=== PATIENT | male | born 1955 | race Caucasian/White ===

== ENCOUNTER 2017-05-14 10:32 | Inpatient (IN) | payer OTHER ==
[~2017-05-14] VITALS: Ht 182.9 cm; Wt 69.4 kg
[2017-05-14] MEDS ORDERED: ASPIRIN 325 MG TAB PO STA (11:56)
[2017-05-14 12:12] LABS: BASOPHILS % 0.4 % (0.0-2.0); EOSINOPHILS # 0.2 10^3/ul (0.0-0.5); EOSINOPHILS % 1.9 % (0.0-7.0); HEMATOCRIT 44.2 % (42.0-52.0); HEMOGLOBIN 14.7 g/dl (14.0-18.0); LYMPHOCYTES # 2.3 10^3/ul (0.8-2.9); LYMPHOCYTES % 22.8 % (15.0-51.0); MEAN CORPUSCULAR HEMOGLOBIN 29.9 pg (29.0-33.0); MEAN CORPUSCULAR HGB CONC 33.3 g/dl (32.0-37.0); MEAN CORPUSCULAR VOLUME 89.8 fl (82.0-101.0); MEAN PLATELET VOLUME 10.5 fl (7.4-10.4); MONOCYTE # 0.6 10^3/ul (0.3-0.9); MONOCYTES % 6.1 % (0.0-11.0); NEUTROPHILS % 68.4 % (39.0-77.0); PLATELET COUNT 258 10^3/UL (140-415); RED BLOOD COUNT 4.92 10^6/ul (4.70-6.10); RED CELL DISTRIBUTION WIDTH 12.8 % (11.5-14.5); WHITE BLOOD COUNT 10.2 10^3/ul (4.8-10.8)
[2017-05-14 12:38] LABS: CREATININE 0.86 mg/dl (0.61-1.24); POTASSIUM 4.5 mmol/L (3.5-5.1)
[2017-05-14] MEDS ORDERED: ASPI81TA3 PO (12:41)
[2017-05-14] MEDS ORDERED: OMEP20CA16 PO (12:41)
[2017-05-14] MEDS ORDERED: METO-448 PO (12:41)
[2017-05-14] MEDS ORDERED: ATOR40TA68 PO (12:42)
[2017-05-14] MEDS ORDERED: CLOP75TA27 PO (12:42)
[2017-05-14] MEDS ORDERED: MONT10TA24 PO (12:42)
[2017-05-14] MEDS ORDERED: NITR0.4T32 SL (12:42)
[2017-05-14] MEDS ORDERED: RANO500T2 PO (12:45)
[2017-05-14 12:58] LABS: TROPONIN-I 0.166 ng/ml (0.00-0.12)
--- NOTE | 2017-05-14 13:39 | RADRPT ---
PROCEDURE: XR Chest. CLINICAL INDICATION: Chest pain . TECHNIQUE: Single frontal chest x-ray. COMPARISON: None. FINDINGS: There is diffuse bilateral interstitial prominence. There are no alveolar infiltrates, edema, or eff usions. .. The cardiomediastinal silhouette is unremarkable. The osseous structures are intact. IMPRESSION: Diffuse bilateral interstitial prominence suggesting interstitial edema or infiltrates.. RPTAT: KK .Alejandro Colindres MD, MD Date Time Electronically viewed and signed by .Alejandro Colindres MD, on 05/14/2017 13:38 .L/
--- NOTE | 2017-05-14 14:20 | ERA ---
ER Documentation Chief Complaint Date/Time DATE: 05/14/17 TIME: 14:16 Chief Complaint CHEST PAIN, ON AND OFF X1 WEEK, HX OF HEART STENTS HPI 8-year-old male presents for worsening chest pain that began a week ago and has been intermittent. Today's had the pain all of day. Is left-sided nonradiating described as a tightness and pressure-like sensation per he was sent in to [facility] for a very concerning stress test was abnormal. Patient has a history of coronary disease multiple stents. He has mild shortness of breath as well. ROS All systems reviewed and are negative except as per history of present illness. Medications Home Meds Reported Medications Ranolazine* (Ranexa*) 500 Mg Tab.sr.12h, 500 MG PO Q12, TAB 05/14/17 Atorvastatin* (Atorvastatin*) 40 Mg Tablet, 40 MG PO QHS, #30 TAB 05/14/17 Nitroglycerin* (Nitroglycerin* SL) 0.4 Mg Tab.subl, 0.4 MG SL Q5MIN Y for CHEST PAIN, BOTTLE 05/14/17 Clopidogrel Bisulfate (Clopidogrel) 75 Mg Tablet, 75 MG PO DAILY, #30 TAB 05/14/17 Montelukast Sodium* (Montelukast Sodium*) 10 Mg Tablet, 10 MG PO QHS, #30 TAB 05/14/17 Aspirin* (Aspirin* Chew) 81 Mg Tab.chew, 81 MG PO DAILY, TAB.CHEW 05/14/17 Omeprazole* (Omeprazole*) 20 Mg Capsule.dr, 20 MG PO DAILY, #30 CAP 05/14/17 Metoprolol Tartrate* (Lopressor*) 25 Mg Tab, 25 MG PO BID, #60 TAB 05/14/17 Allergies Allergies: Coded Allergies: No Known Drug Allergies (Verified Allergy, Unknown, 05/14/17) PMhx/Soc Hx Cardiac Disorders: Yes (STENT PLACED X2 . HIGH CHOLESTEROL. ) Hx Alcohol Use: No Hx Substance Use: No Hx Tobacco Use: Yes Smoking Status: Current every day smoker Physical Exam Vitals Vital Signs Date Time Temp Pulse Resp B/P Pulse Ox O2 Delivery O2 Flow Rate FiO2 05/14/17 12:30 Nasal Cannula 2 05/14/17 12:30 98.5 55 20 98 Room Air 05/14/17 10:38 98.6 61 17 107/67 97 Physical Exam Const: [] Moderate distress Head: Atraumatic Eyes: Normal Conjunctiva ENT: Normal External Ears, Nose and Mouth. Neck: Full range of motion..~ No meningismus. Resp: Clear to auscultation bilaterally Cardio: Regular rate and rhythm, no murmurs Abd: Soft, non tender, non distended. Normal bowel sounds Skin: No petechiae or rashes Back: No midline or flank tenderness Ext: No cyanosis, or edema Neur: Awake and alert and oriented 3, no focal deficits Psych: Normal Mood and Affect Result Diagram: 05/14/17 1150 05/14/17 1150 Results 24 hrs Laboratory Tests Test 05/14/17 11:50 White Blood Count 10.210^3/ul Red Blood Count 4.9210^6/ul Hemoglobin 14.7g/dl Hematocrit 44.2% Mean Corpuscular Volume 89.8fl Mean Corpuscular Hemoglobin 29.9pg Mean Corpuscular Hemoglobin Concent 33.3g/dl Red Cell Distribution Width 12.8% Platelet Count 81142^3/UL Mean Platelet Volume 10.5fl Neutrophils % 68.4% Lymphocytes % 22.8% Monocytes % 6.1% Eosinophils % 1.9% Basophils % 0.4% Nucleated Red Blood Cells % 0.0/100WBC Neutrophils # 7.010^3/ul Lymphocytes # 2.310^3/ul Monocytes # 0.610^3/ul Eosinophils # 0.210^3/ul Basophils # 0.010^3/ul Nucleated Red Blood Cells # 0.010^3/ul Sodium Level 139mmol/L Potassium Level 4.5mmol/L Chloride Level 107mmol/L Carbon Dioxide Level 23mmol/L Anion Gap 14 Blood Urea Nitrogen 16mg/dl Creatinine 0.86mg/dl Glucose Level 101mg/dl Calcium Level 9.0mg/dl Troponin I 0.166ng/ml Current Medications Medications (Trade) Dose Ordered Sig/Margaret Route PRN Reason Start Time Stop Time Status Last Admin Dose Admin Aspirin (Aspirin) 325 mg ONCE STAT PO 05/14/17 11:56 05/14/17 11:58 DC 05/14/17 11:56 Procedures/MDM Chest pain with abnormal stress test since troponin elevation. Spoke with Dr. Khalil who intends to catheterize the patient. Will be admitted for trending of troponins as well as cardiac catheterization by the patient's pharmacy resident. Spoke with Dr. Trinidad of [employer] who Agrees with Capitated Patient Not Going to [employer]. Patient was given 325 mg aspirin. His blood pressure is borderline low and I do not want to give him nitroglycerin. He is being admitted to panel hospitalist. EKG interpretation: Sinus bradycardia rate of 59, left axis deviation, no ST or T-wave changes concerning for acute ischemia, normal intervals. monitoring and evaluation advisor interpretation: Normal sinus rhythm without arrhythmia Chest x-ray interpretation: I see no acute process, I see no pneumothorax, no edema, no widened mediastinum, no fractures. Departure Diagnosis: Primary Impression: Chest pain Additional Impression: Elevated troponin Condition: Serious SHELLIEERJILOULOU PINO May 14, 2017 14:20
[2017-05-14 15:30] VITALS: TEMP 98.5
[2017-05-14] MEDS ORDERED: HEPARIN 1000 UNITS/ML 10 ML INJ IV PRN (16:00)
[2017-05-14] MEDS ORDERED: ACETAMINOPHEN 325 MG TAB PO PRN ×2 (16:00)
[2017-05-14] MEDS ORDERED: HEPARIN 1000 UNITS/ML 10 ML INJ IV ONE (16:00)
[2017-05-14] MEDS ORDERED: HEPARIN 25000 UNITS/250 ML 250 ML IV SCH (16:00)
[2017-05-14] MEDS ORDERED: ONDANSETRON 4 MG INJ IV PRN ×2 (16:00)
[2017-05-14] MEDS ORDERED: NACL 0.9% 3 ML SYG IV SCH (16:00)
--- NOTE | 2017-05-14 16:26 | HP ---
Date/Time of Note Date/Time of Note DATE: 05/14/17 TIME: 16:21 Assessment/Plan VTE Prophylaxis VTE Prophylaxis Intervention: LMWH Lines/Catheters [facility]ine [facility] Assessment/Plan Chief Complaint/Hosp Course 1. Non-ST elevation myocardial infarction. The patient has a positive stress test. The patient will be started on therapeutic anticoagulation. The patient will be continued on dual antiplatelet therapy too since the patient has prior history of coronary artery stenting. Senior Marketing Data Analyst has already been informed of the patient's admission. 2. CAD. Patient has prior history of CAD with coronary artery stenting. The patient will be continued on dual antiplatelet therapy. 3. Dyslipidemia. The patient will be continued on statins. 4. Nicotine use. Cessation will be advised. The patient will be provided with a nicotine patch. Plan: The patient will be admitted to inpatient telemetry floor. The patient will be started on a low-cholesterol diet. The patient will be started on therapeutic Lovenox. The patient will remain a full code. Activities will be as tolerated. The rest of the patient's management will be based on the clinical course, inputs from consultants, and the results of diagnostic studies. Based on the patient's clinical presentation, he most probably requires at least 2 midnights' stay for further management and evaluation of his clinical presentation. The case and management of this patient was fully discussed with Dr. Jakc. Problems: HPI/ROS Admit Date/Time Admit Date/Time Hx of Present Illness Reason for admission: Chest pain, positive outpatient cardiac stress test. Consultants 1. Avel Khalil MD, Cardiology. This is a 62-year-old [place] male with past medical history essential hypertension, dyslipidemia, and CAD status post coronary artery stenting who had an outpatient positive stress test. The patient was recently having chest pain and dyspnea. The patient verbalized the chest pain as substernal with radiation to the right shoulder. The patient explained exertional chest pain and dyspnea. The patient denied any cough. The patient denied any nausea or vomiting. The patient has been following up with Dr. Khalil as outpatient. In the emergency room, the patient was noticed to have elevated troponins (0.166 ). ROS Constitutional: no complaints Eyes: no complaints ENT: no complaints Respiratory: shortness of breath Cardiovascular: chest pain Gastrointestinal: no complaints Genitourinary: no complaints Musculoskeletal: no complaints Skin: no complaints Neurologic: no complaints Endocrine: no complaints Lymphatic: no complaints Psychological: no complaints Immunologic: no complaints PMH/Family/Social Past Medical History Medical History: coronary artery disease, high cholesterol, hypertension Past Surgical History Past Surgical Hx: angioplasty Social History Alcohol Use: occasionally Smoking Status: Current every day smoker Drug Use: none Exam/Review of Systems Vital Signs Vitals Vital Signs Date Time Temp Pulse Resp B/P Pulse Ox O2 Delivery O2 Flow Rate FiO2 05/14/17 15:30 98.5 60 20 102/69 98 Room Air 05/14/17 12:30 2 Exam Exam General: Adequately build 62 year-old male lying in bed in no apparent distress. HEENT: Normocephalic, atraumatic. Eyes: Anicteric sclerae, conjunctivae clear. ENT: Nasal septum midline, oral mucosa moist. Neck supple, JVD noticed. Respiratory: Bilaterally clear breath sounds. No use of accessory muscles of respiration. No adventitious breath sounds. Cardiovascular: S1, S2 heard. No murmurs or gallops. Abdomen: Soft, nontender, and nondistended. Bowel sounds positive in all 4 quadrants. Genitourinary: Deferred. Extremities: No cyanosis, no clubbing, no edema. Peripheral pulses palpable. Neurologic: Cranial nerves II through XII grossly intact. The patient is awake, alert, and oriented. Skin: Normal skin turgor. No skin rashes. Labs Result Diagram: 05/14/17 1150 05/14/17 1150 Medications Medications Current Medications Ondansetron HCl (Zofran Inj) 4 mg Q6H PRN IV NAUSEA AND/OR VOMITING; Start 05/14/17 at 16:00 Acetaminophen (Tylenol Tab) 650 mg Q6H PRN PO PAIN LEVEL 1-3 OR FEVER; Start 05/14/17 at 16:00 Acetaminophen/ Hydrocodone Bitart ([place] (5/325)) 1 tab Q6H PRN PO PAIN LEVEL 4 -6; Start 05/14/17 at 16:00 Aspirin (Aspirin) 81 mg DAILY PO ; Start 05/15/17 at 09:00; Status UNV Atorvastatin Calcium (Lipitor) 40 mg QHS PO ; Start 05/14/17 at 21:00; Status UNV Clopidogrel Bisulfate (plaVIX) 75 mg DAILY PO ; Start 05/15/17 at 09:00; Status UNV Metoprolol Tartrate (Lopressor) 25 mg BID PO ; Start 05/14/17 at 21:00; Status UNV Montelukast Sodium (Singulair) 10 mg QHS PO ; Start 05/14/17 at 21:00; Status UNV Ranolazine (Ranexa) 500 mg Q12 PO ; Start 05/14/17 at 21:00; Status UNV Miscellaneous Information (* Miscellaneous Pharmacy Order) DC previous hepa... ONCE ONCE XX ; Start 05/14/17 at 16:00; Stop 05/14/17 at 16:01; Status UNV Procedures Procedures CXR IMPRESSION: Diffuse bilateral interstitial prominence suggesting interstitial edema or infiltrates. 12-Lead EKG Sinus bradycardia. DREA NEWELL NP May 14, 2017 16:26
[2017-05-14 19:37] VITALS: BP 107/61; RESP 18
[2017-05-14 20:10] VITALS: BP 118/74; PULSE 59; RESP 18; Ht 182.9 cm; Wt 69.4 kg
[2017-05-14] MEDS: MONTELUKAST 10 MG TAB PO SCH (20:18)
[2017-05-14] MEDS: RANOLAZINE (SR) 500 MG TAB PO SCH (20:18)
[2017-05-14] MEDS: ATORVASTATIN 40 MG TAB PO SCH (20:18)
[2017-05-14] MEDS: ENOXAPARIN 100 MG/ML SYG SC SCH (20:21)
[2017-05-14] MEDS: METOPROLOL 25 MG TAB PO SCH (20:22)
[2017-05-14 20:33] VITALS: PULSE 59
[2017-05-14 20:58] LABS: CK-MB 1.03 ng/ml (0.0-2.4); TROPONIN-I 0.195 ng/ml (0.00-0.12)
[2017-05-14] MEDS: ISOSORBIDE DINITRATE 10 MG TAB PO SCH (21:00)
[2017-05-14] MEDS ORDERED: NITROGLYCERIN (SL) 0.4 MG TAB SL PRN (21:00)
[2017-05-14 21:40] VITALS: BP 116/72; PULSE 67
[2017-05-14] MEDS: NICOTINE (14 MG/24 HR) PATCH TRANSDERM SCH (22:48)
[2017-05-15] VITALS (13 sets, daily range): BP systolic 112–128; BP diastolic 59–73; PULSE 60–70; RESP 16–20
[2017-05-15 01:51] LABS: CK-MB 0.77 ng/ml (0.0-2.4); TROPONIN-I 0.207 ng/ml (0.00-0.12)
[2017-05-15 07:41] LABS: BASOPHILS % 0.4 % (0.0-2.0); EOSINOPHILS # 0.3 10^3/ul (0.0-0.5); EOSINOPHILS % 3.3 % (0.0-7.0); HEMATOCRIT 43.9 % (42.0-52.0); HEMOGLOBIN 14.2 g/dl (14.0-18.0); LYMPHOCYTES # 2.1 10^3/ul (0.8-2.9); LYMPHOCYTES % 25.6 % (15.0-51.0); MEAN CORPUSCULAR HEMOGLOBIN 29.7 pg (29.0-33.0); MEAN CORPUSCULAR HGB CONC 32.3 g/dl (32.0-37.0); MEAN CORPUSCULAR VOLUME 91.8 fl (82.0-101.0); MEAN PLATELET VOLUME 10.5 fl (7.4-10.4); MONOCYTE # 0.7 10^3/ul (0.3-0.9); MONOCYTES % 8.1 % (0.0-11.0); NEUTROPHIL # 5.1 10^3/ul (1.6-7.5); NEUTROPHILS % 62.2 % (39.0-77.0); PLATELET COUNT 239 10^3/UL (140-415); RED BLOOD COUNT 4.78 10^6/ul (4.70-6.10); WHITE BLOOD COUNT 8.2 10^3/ul (4.8-10.8)
[2017-05-15 08:10] LABS: CHOL/HDL RATIO 8.4 RATIO; MAGNESIUM 1.9 mg/dl (1.7-2.5); PHOSPHORUS 4.2 mg/dl (2.5-4.9)
[2017-05-15 08:11] LABS: CALCIUM 8.7 mg/dl (8.4-10.2); CREATININE 0.86 mg/dl (0.61-1.24)
[2017-05-15 08:22] LABS: INR 0.99; PROTIME 13.1 Sec (12.2-14.2)
[2017-05-15 08:23] LABS: PARTIAL THROMBOPLASTIN TIME 31.2 Sec (25.0-35.0)
[2017-05-15 08:24] LABS: TROPONIN-I 0.201 ng/ml (0.00-0.12)
[2017-05-15] MEDS: ISOSORBIDE DINITRATE 10 MG TAB PO SCH ×3 (09:00→21:00)
[2017-05-15] MEDS: CLOPIDOGREL 75 MG TAB PO SCH (09:53)
[2017-05-15] MEDS: ASPIRIN 81 MG TAB PO SCH (09:54)
[2017-05-15] MEDS: RANOLAZINE (SR) 500 MG TAB PO SCH ×2 (09:54→20:21)
[2017-05-15] MEDS: METOPROLOL 25 MG TAB PO SCH ×2 (09:54→20:22)
[2017-05-15] MEDS: NICOTINE (14 MG/24 HR) PATCH TRANSDERM SCH (09:55)
[2017-05-15] MEDS: ENOXAPARIN 100 MG/ML SYG SC SCH ×2 (09:57→20:24)
--- NOTE | 2017-05-15 10:24 | PN ---
Date/Time of Note Date/Time of Note DATE: 05/15/17 TIME: 10:20 Assessment/Plan VTE Prophylaxis VTE Prophylaxis Intervention: LMWH Lines/Catheters [facility] Urinary Cath still in place: No Assessment/Plan Chief Complaint/Hosp Course 1. Non-ST elevation myocardial infarction. The patient has a positive stress test. Continue therapeutic anticoagulation. Cardiology following the patient. 2. CAD. Patient has prior history of CAD with coronary artery stenting. The patient will be continued on dual antiplatelet therapy. 3. Dyslipidemia. The patient will be continued on statins. 4. Chest x-ray showing diffuse bilateral interstitial prominence suggesting interstitial edema or infiltrates. Patient has no evidence of any infectious etiology. Patient symptomatically stable. Will order low dose diuretics. 5. Nicotine use. Cessation will be advised. The patient will be provided with a nicotine patch. 6. Fluids, electrolytes, and nutrition. Low-cholesterol diet. 7. Plan. Continue therapeutic anticoagulation. Await further recommendations from Cardiology. Case discussed with Dr. Jack. Problems: Subjective 24 Hr Interval Summary Free Text/Dictation Denies any chest pain. Wants to go out to smoke. Exam/Review of Systems Vital Signs Vitals Vital Signs Date Time Temp Pulse Resp B/P Pulse Ox O2 Delivery O2 Flow Rate FiO2 05/15/17 08:00 61 05/15/17 07:32 97.7 20 124/73 96 05/14/17 20:10 Room Air 05/14/17 12:30 2 Intake and Output 05/14/17 05/14/17 05/15/17 15:00 23:00 07:00 Intake Total 500 ml Balance 500 ml Exam General: Adequately build 62 year-old male lying in bed in no apparent distress. HEENT: Normocephalic, atraumatic. Eyes: Anicteric sclerae, conjunctivae clear. ENT: Nasal septum midline, oral mucosa moist. Neck supple, JVD noticed. Respiratory: Bilaterally clear breath sounds. No use of accessory muscles of respiration. No adventitious breath sounds. Cardiovascular: S1, S2 heard. No murmurs or gallops. Abdomen: Soft, nontender, and nondistended. Bowel sounds positive in all 4 quadrants. Genitourinary: Deferred. Extremities: No cyanosis, no clubbing, no edema. Peripheral pulses palpable. Neurologic: Cranial nerves II through XII grossly intact. The patient is awake, alert, and oriented. Skin: Normal skin turgor. No skin rashes. Results Result Diagram: 05/15/17 0721 05/15/17 0721 Results 24 hrs Laboratory Tests Test 05/14/17 11:50 05/14/17 14:50 05/14/17 19:55 05/15/17 00:16 White Blood Count 10.2 Red Blood Count 4.92 Hemoglobin 14.7 Hematocrit 44.2 Mean Corpuscular Volume 89.8 Mean Corpuscular Hemoglobin 29.9 Mean Corpuscular Hemoglobin Concent 33.3 Red Cell Distribution Width 12.8 Platelet Count 258 Mean Platelet Volume 10.5 H Neutrophils % 68.4 Lymphocytes % 22.8 Monocytes % 6.1 Eosinophils % 1.9 Basophils % 0.4 Nucleated Red Blood Cells % 0.0 Neutrophils # 7.0 Lymphocytes # 2.3 Monocytes # 0.6 Eosinophils # 0.2 Basophils # 0.0 Nucleated Red Blood Cells # 0.0 Sodium Level 139 Potassium Level 4.5 Chloride Level 107 Carbon Dioxide Level 23 Anion Gap 14 Blood Urea Nitrogen 16 Creatinine 0.86 Glucose Level 101 Calcium Level 9.0 Troponin I 0.166 *H 0.195 *H 0.207 *H Hemoglobin A1c 5.8 Thyroid Stimulating Hormone (TSH) 1.380 Free Thyroxine 1.19 Creatine Kinase 49 43 Creatine Kinase Index 2.1 1.8 Creatinine Kinase MB (Mass) 1.03 0.77 Test 05/15/17 07:21 White Blood Count 8.2 Red Blood Count 4.78 Hemoglobin 14.2 Hematocrit 43.9 Mean Corpuscular Volume 91.8 Mean Corpuscular Hemoglobin 29.7 Mean Corpuscular Hemoglobin Concent 32.3 Red Cell Distribution Width 13.0 Platelet Count 239 Mean Platelet Volume 10.5 H Neutrophils % 62.2 Lymphocytes % 25.6 Monocytes % 8.1 Eosinophils % 3.3 Basophils % 0.4 Nucleated Red Blood Cells % 0.0 Neutrophils # 5.1 Lymphocytes # 2.1 Monocytes # 0.7 Eosinophils # 0.3 Basophils # 0.0 Nucleated Red Blood Cells # 0.0 Prothrombin Time 13.1 Prothrombin Time Ratio 1.0 INR International Normalized Ratio 0.99 Activated Partial Thromboplast Time 31.2 Sodium Level 140 Potassium Level 5.0 Chloride Level 108 Carbon Dioxide Level 25 Anion Gap 12 Blood Urea Nitrogen 20 Creatinine 0.86 Glucose Level 119 Calcium Level 8.7 Phosphorus Level 4.2 Magnesium Level 1.9 Troponin I 0.201 *H Triglycerides Level 186 H Cholesterol Level 219 H LDL Cholesterol, Calculated 156 HDL Cholesterol 26 L Cholesterol/HDL Ratio 8.4 Medications Medications Current Medications Ondansetron HCl (Zofran Inj) 4 mg Q6H PRN IV NAUSEA AND/OR VOMITING; Start 05/14/17 at 16:00 Acetaminophen (Tylenol Tab) 650 mg Q6H PRN PO PAIN LEVEL 1-3 OR FEVER; Start 05/14/17 at 16:00 Acetaminophen/ Hydrocodone Bitart ([place] (5/325)) 1 tab Q6H PRN PO PAIN LEVEL 4 -6; Start 05/14/17 at 16:00 Aspirin (Aspirin) 81 mg DAILY PO Last administered on 05/15/17 09:54; Admin Dose 81 MG; Start 05/15/17 at 09:00 Atorvastatin Calcium (Lipitor) 40 mg QHS PO Last administered on 05/14/17 20: 18; Admin Dose 40 MG; Start 05/14/17 at 21:00 Clopidogrel Bisulfate (plaVIX) 75 mg DAILY PO Last administered on 05/15/17 09 :53; Admin Dose 75 MG; Start 05/15/17 at 09:00 Metoprolol Tartrate (Lopressor) 25 mg BID PO Last administered on 05/15/17 09: 54; Admin Dose 25 MG; Start 05/14/17 at 21:00 Montelukast Sodium (Singulair) 10 mg QHS PO Last administered on 05/14/17 20: 18; Admin Dose 10 MG; Start 05/14/17 at 21:00 Ranolazine (Ranexa) 500 mg Q12 PO Last administered on 05/15/17 09:54; Admin Dose 500 MG; Start 05/14/17 at 21:00 Enoxaparin Sodium (Lovenox) 70 mg Q12 SC Last administered on 05/15/17 09:57; Admin Dose 70 MG; Start 05/14/17 at 21:00 Nicotine (Nicoderm 14 Mg/ 24hr) 1 patch DAILY TRANSDERM Last administered on 09:55; Admin Dose 1 PATCH; Start 05/14/17 at 16:30 Isosorbide Dinitrate (Isordil) 10 mg TID PO ; Start 05/14/17 at 21:00 Nitroglycerin (Nitroglycerin (Sl Tab) 0.4 Mg) 1 tab Q5M PRN SL ANGINA; Start 05/14/17 at 21:00 DREA NEWELL NP May 15, 2017 10:24
[2017-05-15] MEDS: FUROSEMIDE 20 MG TAB PO SCH (15:30)
--- NOTE | 2017-05-15 17:50 | CONS ---
Date/Time of Note Date/Time of Note DATE: 05/15/17 TIME: 17:47 Assessment/Plan Assessment/Plan Additional Assessment/Plan NSTEMI Hypertension Hyperlipidemia CHF Hemodynamically stable Continue Isordil Continue Metoprolol Continue ASA and Plavix Continue Lasix Continue Lipitor discontinue Ranexa Consultation Date/Type/Reason Admit Date/Time Eyes: no complaints ENT: no complaints Respiratory: shortness of breath Cardiovascular: chest pain Gastrointestinal: no complaints Genitourinary: no complaints Musculoskeletal: no complaints Skin: no complaints Neurologic: no complaints Lymphatic: no complaints Psychological: no complaints Immunologic: no complaints Past Medical History Medical History: coronary artery disease, high cholesterol, hypertension Past Surgical History Past Surgical Hx: angioplasty Social History Alcohol Use: occasionally Smoking Status: Current every day smoker Drug Use: none Exam/Review of Systems Vital Signs Vitals Vital Signs Date Time Temp Pulse Resp B/P Pulse Ox O2 Delivery O2 Flow Rate FiO2 05/15/17 16:00 60 05/15/17 15:42 98.1 20 113/68 96 05/14/17 20:10 Room Air 05/14/17 12:30 2 Intake and Output 05/14/17 05/14/17 05/15/17 14:59 22:59 06:59 Intake Total 500 ml Balance 500 ml Exam Constitutional: alert, oriented Head: atraumatic, normocephalic Neck: non-tender, supple Respiratory: clear to auscultation Cardiovascular: regular rate and rhythm Gastrointestinal: nl liver, spleen, non-tender, soft Extremities: normal pulses Results Result Diagram: 05/15/17 0721 05/15/17 0721 Results 24 hrs Laboratory Tests Test 05/14/17 19:55 05/15/17 00:16 05/15/17 07:21 Creatine Kinase 49 43 Creatine Kinase Index 2.1 1.8 Creatinine Kinase MB (Mass) 1.03 0.77 Troponin I 0.195 *H 0.207 *H 0.201 *H White Blood Count 8.2 Red Blood Count 4.78 Hemoglobin 14.2 Hematocrit 43.9 Mean Corpuscular Volume 91.8 Mean Corpuscular Hemoglobin 29.7 Mean Corpuscular Hemoglobin Concent 32.3 Red Cell Distribution Width 13.0 Platelet Count 239 Mean Platelet Volume 10.5 H Neutrophils % 62.2 Lymphocytes % 25.6 Monocytes % 8.1 Eosinophils % 3.3 Basophils % 0.4 Nucleated Red Blood Cells % 0.0 Neutrophils # 5.1 Lymphocytes # 2.1 Monocytes # 0.7 Eosinophils # 0.3 Basophils # 0.0 Nucleated Red Blood Cells # 0.0 Prothrombin Time 13.1 Prothrombin Time Ratio 1.0 INR International Normalized Ratio 0.99 Activated Partial Thromboplast Time 31.2 Sodium Level 140 Potassium Level 5.0 Chloride Level 108 Carbon Dioxide Level 25 Anion Gap 12 Blood Urea Nitrogen 20 Creatinine 0.86 Glucose Level 119 Calcium Level 8.7 Phosphorus Level 4.2 Magnesium Level 1.9 Triglycerides Level 186 H Cholesterol Level 219 H LDL Cholesterol, Calculated 156 HDL Cholesterol 26 L Cholesterol/HDL Ratio 8.4 Medications Medications Current Medications Ondansetron HCl (Zofran Inj) 4 mg Q6H PRN IV NAUSEA AND/OR VOMITING; Start 05/14/17 at 16:00 Acetaminophen (Tylenol Tab) 650 mg Q6H PRN PO PAIN LEVEL 1-3 OR FEVER; Start 05/14/17 at 16:00 Acetaminophen/ Hydrocodone Bitart ([place] (5/325)) 1 tab Q6H PRN PO PAIN LEVEL 4 -6; Start 05/14/17 at 16:00 Aspirin (Aspirin) 81 mg DAILY PO Last administered on 05/15/17 09:54; Admin Dose 81 MG; Start 05/15/17 at 09:00 Atorvastatin Calcium (Lipitor) 40 mg QHS PO Last administered on 05/14/17 20: 18; Admin Dose 40 MG; Start 05/14/17 at 21:00 Clopidogrel Bisulfate (plaVIX) 75 mg DAILY PO Last administered on 05/15/17 09 :53; Admin Dose 75 MG; Start 05/15/17 at 09:00 Metoprolol Tartrate (Lopressor) 25 mg BID PO Last administered on 05/15/17 09: 54; Admin Dose 25 MG; Start 05/14/17 at 21:00 Montelukast Sodium (Singulair) 10 mg QHS PO Last administered on 05/14/17 20: 18; Admin Dose 10 MG; Start 05/14/17 at 21:00 Ranolazine (Ranexa) 500 mg Q12 PO Last administered on 05/15/17 09:54; Admin Dose 500 MG; Start 05/14/17 at 21:00 Enoxaparin Sodium (Lovenox) 70 mg Q12 SC Last administered on 05/15/17 09:57; Admin Dose 70 MG; Start 05/14/17 at 21:00 Nicotine (Nicoderm 14 Mg/ 24hr) 1 patch DAILY TRANSDERM Last administered on 09:55; Admin Dose 1 PATCH; Start 05/14/17 at 16:30 Isosorbide Dinitrate (Isordil) 10 mg TID PO ; Start 05/14/17 at 21:00 Nitroglycerin (Nitroglycerin (Sl Tab) 0.4 Mg) 1 tab Q5M PRN SL ANGINA; Start 05/14/17 at 21:00 Furosemide (Lasix) 20 mg DAILY PO ; Start 05/15/17 at 15:30 DENIA RAPHAEL M.D. May 15, 2017 17:50
[2017-05-15] MEDS: ATORVASTATIN 40 MG TAB PO SCH (20:21)
[2017-05-15] MEDS: MONTELUKAST 10 MG TAB PO SCH (20:21)
--- NOTE | 2017-05-15 23:11 | RADRPT ---
Echocardiogram Report Patient Name: LOLA BEATTY Gender: Male Date: 1955 Study Date: 15-May-2017 Infrastructure Manager: Sil [facility] Location: 6 Ref. Physician: BELGICA REGAN Quality: Adequate Procedures: Transthoracic echocardiogram with complete 2D, M-Mode, and doppler examination. Indications: Chest Pain. 2D/M Mode Doppler Measurement Value Normal Ranges Measurement Value Normal Ranges LVIDd 2D 5.2 3.5 - 5.6 cm AV Peak Milind 1.5 m/sec LVIDs 2D 3.5 2.1 - 4.1 cm AV Peak PG 9.0 mmHg FS 2D 31.7 % LVOT Peak Milind 0.9 m/sec LVPWd 2D 1.1 0.6 - 1.1 cm LVOT Peak PG 3.0 mmHg IVSd 2D 1.2 0.6 - 1.1 cm MV E Peak Milind 0.8 m/sec IVS/LVPW 2D 1.0 MV A Peak Milind 0.6 m/sec AoR Diam 2D 2.4 2.0 - 3.7 cm MV E/A 1.4 LA/Ao 2D 2 0 - 1 MV Decel Time 144 msec EDV 2D 137.0 cm3 MV E/A 1.4 ESV 2D 43.6 cm3 MR Peak PG 94.0 mmHg LA Dimen 2D 3.9 2.3 - 4.0 cm MR Peak Milind 4.9 m/sec Findings Left Ventricle: Normal left ventricular systolic function. Normal left ventricular cavity size. Left ventricular wall thickness upper limits of normal. Ejection fraction is visually estimated at 65 %. Abnormal Diastolic Function. Right Ventricle: Normal right ventricular size. Normal right ventricular systolic function. Left Atrium: The left atrium is normal in size. Right Atrium: The right atrium is normal in size. Mitral Valve: Mild mitral leaflet calcification. Mild mitral annular calcification. Mild mitral valve regurgitation. Aortic Valve: Normal appearance of the aortic valve. No significant aortic stenosis or insufficiency. Tricuspid Valve: Normal appearance of the tricuspid valve. Unable to obtain RVSP due to minimal presence of tricuspid regurgitation. There is trace tricuspid regurgitation. Pulmonic Valve: Pulmonic valve not well visualized. There is trace pulmonic regurgitation. Pericardium: Normal pericardium with no significant pericardial effusion. Aorta: Normal aortic root. IVC: Normal size and normal respiratory collapse consistent with normal right atrial pressure. Conclusions Normal left ventricular systolic function. Normal left ventricular cavity size. Left ventricular wall thickness upper limits of normal. Ejection fraction is visually estimated at 65 %. Abnormal Diastolic Function. Normal right ventricular size. Normal right ventricular systolic function. Normal appearance of the aortic valve. No significant aortic stenosis or insufficiency. Mild mitral leaflet calcification. Mild mitral annular calcification. Mild mitral valve regurgitation. Normal appearance of the tricuspid valve. Unable to obtain RVSP due to minimal presence of tricuspid regurgitation. There is trace tricuspid regurgitation. Normal pericardium with no significant pericardial effusion. Electronically Signed By: Morro Dexter 15-May-2017 23:10:12 0700 Patient Name: LOLA BEATTY Study Date: 15-May-2017 [id number]
[2017-05-16] VITALS (13 sets, daily range): BP systolic 117–128; BP diastolic 60–78; PULSE 57–67; RESP 18–19
[2017-05-16] MEDS: HYDROCODONE/APAP (5/325) TAB PO PRN ×2 (00:29→21:00)
[2017-05-16] MEDS: ISOSORBIDE DINITRATE 10 MG TAB PO SCH ×3 (09:00→21:00)
[2017-05-16] MEDS: RANOLAZINE (SR) 500 MG TAB PO SCH ×2 (09:24→20:43)
[2017-05-16] MEDS: ASPIRIN 81 MG TAB PO SCH (09:24)
[2017-05-16] MEDS: FUROSEMIDE 20 MG TAB PO SCH (09:25)
[2017-05-16] MEDS: CLOPIDOGREL 75 MG TAB PO SCH (09:25)
[2017-05-16] MEDS: METOPROLOL 25 MG TAB PO SCH ×2 (09:25→20:44)
[2017-05-16] MEDS: NICOTINE (14 MG/24 HR) PATCH TRANSDERM SCH (09:26)
[2017-05-16] MEDS: ENOXAPARIN 100 MG/ML SYG SC SCH ×2 (09:39→20:50)
--- NOTE | 2017-05-16 13:50 | PN ---
Date/Time of Note Date/Time of Note DATE: 05/16/17 TIME: 13:48 Assessment/Plan VTE Prophylaxis VTE Prophylaxis Intervention: LMWH Lines/Catheters IV C[facility]ter Type [facility]from [facility] Saline Lock Urinary Cath still in place: No Assessment/Plan Chief Complaint/Hosp Course 1. Non-ST elevation myocardial infarction. The patient has a positive stress test. Continue therapeutic anticoagulation. Cardiology following the patient. 2. CAD. Patient has prior history of CAD with coronary artery stenting. The patient will be continued on dual antiplatelet therapy. 3. Dyslipidemia. The patient will be continued on statins. 4. Chest x-ray showing diffuse bilateral interstitial prominence suggesting interstitial edema or infiltrates. Patient has no evidence of any infectious etiology. Patient symptomatically stable. Low dose diuretics. Repeat CXR. 5. Nicotine use. Cessation will be advised. The patient will be provided with a nicotine patch. 6. Fluids, electrolytes, and nutrition. Low-cholesterol diet. 7. Plan. Continue therapeutic anticoagulation. Await further recommendations from Cardiology. Case discussed with Dr. Jack. Problems: Subjective 24 Hr Interval Summary Free Text/Dictation Denies any chest pain. Walking around in the unit with family. Exam/Review of Systems Vital Signs Vitals Vital Signs Date Time Temp Pulse Resp B/P Pulse Ox O2 Delivery O2 Flow Rate FiO2 05/16/17 13:44 98.0 75 18 118/67 98 05/14/17 20:10 Room Air 05/14/17 12:30 2 Intake and Output 05/15/17 05/15/17 05/16/17 15:00 23:00 07:00 Intake Total 1000 ml Balance 1000 ml Exam General: Adequately build 62 year-old male lying in bed in no apparent distress. HEENT: Normocephalic, atraumatic. Eyes: Anicteric sclerae, conjunctivae clear. ENT: Nasal septum midline, oral mucosa moist. Neck supple, JVD noticed. Respiratory: Bilaterally clear breath sounds. No use of accessory muscles of respiration. No adventitious breath sounds. Cardiovascular: S1, S2 heard. No murmurs or gallops. Abdomen: Soft, nontender, and nondistended. Bowel sounds positive in all 4 quadrants. Genitourinary: Deferred. Extremities: No cyanosis, no clubbing, no edema. Peripheral pulses palpable. Neurologic: Cranial nerves II through XII grossly intact. The patient is awake, alert, and oriented. Skin: Normal skin turgor. No skin rashes. Results Result Diagram: 05/15/1772005/15/17720 Results 24 hrs Laboratory Tests Test 05/16/17 05:43 Troponin I 0.138 *H Medications Medications Current Medications Ondansetron HCl (Zofran Inj) 4 mg Q6H PRN IV NAUSEA AND/OR VOMITING; Start 05/14/17 at 16:00 Acetaminophen (Tylenol Tab) 650 mg Q6H PRN PO PAIN LEVEL 1-3 OR FEVER; Start 05/14/17 at 16:00 Acetaminophen/ Hydrocodone Bitart ([place] (5/325)) 1 tab Q6H PRN PO PAIN LEVEL 4 -6 Last administered on 05/16/17 00:29; Admin Dose 1 TAB; Start 05/14/17 at 16: 00 Aspirin (Aspirin) 81 mg DAILY PO Last administered on 05/16/17 09:24; Admin Dose 81 MG; Start 05/15/17 at 09:00 Atorvastatin Calcium (Lipitor) 40 mg QHS PO Last administered on 05/15/17 20: 21; Admin Dose 40 MG; Start 05/14/17 at 21:00 Clopidogrel Bisulfate (plaVIX) 75 mg DAILY PO Last administered on 05/16/17 09 :25; Admin Dose 75 MG; Start 05/15/17 at 09:00 Metoprolol Tartrate (Lopressor) 25 mg BID PO Last administered on 05/16/17 09: 25; Admin Dose 25 MG; Start 05/14/17 at 21:00 Montelukast Sodium (Singulair) 10 mg QHS PO Last administered on 05/15/17 20: 21; Admin Dose 10 MG; Start 05/14/17 at 21:00 Ranolazine (Ranexa) 500 mg Q12 PO Last administered on 05/16/17 09:24; Admin Dose 500 MG; Start 05/14/17 at 21:00 Enoxaparin Sodium (Lovenox) 70 mg Q12 SC Last administered on 05/16/17 09:39; Admin Dose 70 MG; Start 05/14/17 at 21:00 Nicotine (Nicoderm 14 Mg/ 24hr) 1 patch DAILY TRANSDERM Last administered on 09:26; Admin Dose 1 PATCH; Start 05/14/17 at 16:30 Isosorbide Dinitrate (Isordil) 10 mg TID PO ; Start 05/14/17 at 21:00 Nitroglycerin (Nitroglycerin (Sl Tab) 0.4 Mg) 1 tab Q5M PRN SL ANGINA; Start 05/14/17 at 21:00 Furosemide (Lasix) 20 mg DAILY PO Last administered on 05/16/17t 09:25; Admin Dose 20 MG; Start 05/15/17 at 15:30 DREA NEWELL NP May 16, 2017 13:50
--- NOTE | 2017-05-16 16:38 | CONS ---
Date/Time of Note Date/Time of Note DATE: 05/16/17 TIME: 16:37 Assessment/Plan Assessment/Plan Additional Assessment/Plan NSTEMI Hypertension Hyperlipidemia CHF Hemodynamically stable Continue Lasix Continue Isordil Continue Metoprolol Continue ASA and Plavix Continue Lasix Continue Lipitor Recommend cardiac cath AM. Consultation Date/Type/Reason Admit Date/Time May 14, 2017 at 15:32 Initial Consult Date Exam/Review of Systems Vital Signs Vitals Vital Signs Date Time Temp Pulse Resp B/P Pulse Ox O2 Delivery O2 Flow Rate FiO2 05/16/17 16:15 63 05/16/17 13:44 98.0 18 118/67 98 05/14/17 20:10 Room Air 05/14/17 12:30 2 Intake and Output 05/15/17 05/15/17 05/16/17 15:00 23:00 07:00 Intake Total 1000 ml Balance 1000 ml Results Result Diagram: 05/15/17 0721 05/15/17720 Results 24 hrs Laboratory Tests Test 05/16/17 05:43 Troponin I 0.138 *H Medications Medications Current Medications Ondansetron HCl (Zofran Inj) 4 mg Q6H PRN IV NAUSEA AND/OR VOMITING; Start 05/14/17 at 16:00 Acetaminophen (Tylenol Tab) 650 mg Q6H PRN PO PAIN LEVEL 1-3 OR FEVER; Start 05/14/17 at 16:00 Acetaminophen/ Hydrocodone Bitart ([place] (5/325)) 1 tab Q6H PRN PO PAIN LEVEL 4 -6 Last administered on 05/16/17 00:29; Admin Dose 1 TAB; Start 05/14/17 at 16: 00 Aspirin (Aspirin) 81 mg DAILY PO Last administered on 05/16/17 09:24; Admin Dose 81 MG; Start 05/15/17 at 09:00 Atorvastatin Calcium (Lipitor) 40 mg QHS PO Last administered on 05/15/17 20: 21; Admin Dose 40 MG; Start 05/14/17 at 21:00 Clopidogrel Bisulfate (plaVIX) 75 mg DAILY PO Last administered on 05/16/17 09 :25; Admin Dose 75 MG; Start 05/15/17 at 09:00 Metoprolol Tartrate (Lopressor) 25 mg BID PO Last administered on 05/16/17 09: 25; Admin Dose 25 MG; Start 05/14/17 at 21:00 Montelukast Sodium (Singulair) 10 mg QHS PO Last administered on 05/15/17 20: 21; Admin Dose 10 MG; Start 05/14/17 at 21:00 Ranolazine (Ranexa) 500 mg Q12 PO Last administered on 05/16/17 09:24; Admin Dose 500 MG; Start 05/14/17 at 21:00 Enoxaparin Sodium (Lovenox) 70 mg Q12 SC Last administered on 05/16/17 09:39; Admin Dose 70 MG; Start 05/14/17 at 21:00 Nicotine (Nicoderm 14 Mg/ 24hr) 1 patch DAILY TRANSDERM Last administered on 09:26; Admin Dose 1 PATCH; Start 05/14/17 at 16:30 Isosorbide Dinitrate (Isordil) 10 mg TID PO ; Start 05/14/17 at 21:00 Nitroglycerin (Nitroglycerin (Sl Tab) 0.4 Mg) 1 tab Q5M PRN SL ANGINA; Start 05/14/17 at 21:00 Furosemide (Lasix) 20 mg DAILY PO Last administered on 05/16/17 09:25; Admin Dose 20 MG; Start 05/15/17 at 15:30 DENIA RAPHAEL M.D. May 16, 2017 16:38
--- NOTE | 2017-05-16 17:05 | RADRPT ---
PROCEDURE: XR Chest. CLINICAL INDICATION: Chest pain. TECHNIQUE: Anterior chest x-ray. COMPARISON: 05/14/2017 FINDINGS: The interstitial lung markings are again prominent. There is no focal consolidation. No pleural effusion identified. There is no evidence of pneumothorax. The cardiomediastinal silhouette is unremarkable. The soft tissues are normal. Osseous structures are unremarkable. IMPRESSION: 1. No acute disease is seen in the chest. RPTAT: QQ .Phillip Crowell MD, MD Date Time Electronically viewed and signed by .Phillip Crowell MD, on 05/16/2017 17:05 .M/
--- NOTE | 2017-05-16 20:05 | CONS ---
DATE OF ADMISSION: 05/14/2017 DATE OF CONSULTATION: 05/14/2017 CARDIOLOGY CONSULTATION REASON FOR CONSULTATION: Chest pain, positive stress test, non-ST elevation myocardial infarction. REQUESTING PHYSICIAN: Zay Samayoa and Omar Head from the hospitalist service. HISTORY OF PRESENT ILLNESS: Mr. Joyce is a 62-year-old male with history of hypertension, dyslipidemia, coronary artery disease, status post prior PTCA and stent placement to LAD and circumflex 05/14/2014, hypertension, dyslipidemia, ongoing tobacco usage, who presents with complaints of chest pain, worse with exertional activities, heavy lifting. Describes a pressure-like sensation with radiation to his right shoulder. Upon arrival in the emergency department, temperature 98.6, blood pressure 107/67, pulse 61, respiratory rate 17, temperature 97%. Patient's labs showed white count 10.2, hemoglobin 14.7, platelet count 258. Sodium 139, potassium 4.5, creatinine 0.8, BUN 16. Troponin 0.166, mildly positive. TSH of 1.38. Patient underwent a chest x-ray revealing diffuse bilateral interstitial prominence suggesting interstitial edema or infiltrates. The patient's electrocardiogram revealed sinus bradycardia, rate of 59. Left axis deviation, borderline anteroseptal Q's and nonspecific ST and T-wave abnormalities diffusely. Patient subsequently has been admitted to the hospital and placed on aspirin, Plavix, metoprolol, Ranexa, Lovenox, nicotine patch. ALLERGIES: NO KNOWN DRUG ALLERGIES. SOCIAL HISTORY: Positive tobacco, no ETOH or illicit drug use. FAMILY HISTORY: No history of sudden cardiac or early CAD. REVIEW OF SYSTEMS: As above in HPI. CONSTITUTIONAL: No fevers, chills. PULMONARY: No current shortness of breath. CARDIOVASCULAR: Chest pain. GASTROINTESTINAL: No vomiting. GENITOURINARY: No hematuria. MUSCULOSKELETAL: Degenerative joint disease. PSYCHIATRIC: The patient denies depression. NEUROLOGIC: No documented history of CVA. ENDOCRINE: No documented history of diabetes mellitus. PHYSICAL EXAMINATION: VITAL SIGNS: Temperature 98, blood pressure 118/74, pulse 69, respiratory rate 18, saturating 97%. GENERAL: The patient is alert, awake, in no acute distress, complaining of intermittent chest pain. NECK: JVP approximately 8 cm water. CHEST: Fair air movement throughout. HEART: Regular rate and rhythm. Normal S1, S2, I/ systolic murmur, nondisplaced PMI. ABDOMEN: Positive bowel sounds, soft. EXTREMITIES: No pitting edema, 1+ pulses bilaterally, posterior tibial. LABORATORY DATA: As above in HPI. No further labs for my review at this time. IMAGING STUDIES: As above in HPI. No further imaging studies time. ECG: As above in HPI. No further electrocardiograms for my review at this time. IMPRESSION: 1. Chest pain, assess for acute coronary syndrome. 2. Positive troponin consistent with non-ST elevation myocardial infarction. 3. Abnormal electrocardiogram with diffuse nonspecific ST-T abnormalities in the setting of ongoing chest pain. 4. History of percutaneous transluminal coronary angioplasty and stent placement to circumflex and LAD May 2014. 5. Hypertension. 6. Dyslipidemia. 7. Ongoing tobacco usage. RECOMMENDATIONS: 1. At this time, would maintain the patient on telemetry monitoring to follow rhythm and rate control closely. 2. We will continue the patient on baseline beta francois and will initiate the patient on oral nitrates follow symptomatology closely. 3. Continue to trend the patient's cardiac history, assess for ongoing significant cardiac damage. 4. Continue the patient's dual antiplatelet therapy with aspirin and Plavix, in the setting 0f prior stents. 5. Check a fasting lipid panel for general risk stratification and adjust the patient's lipid-lowering medication. 6. Continue the patient's Lovenox at this time, anticoagulation in the setting of non-ST elevation myocardial infarction. 7. Will check a repeat echo to assess the patient's ejection fraction, wall motion or any major valve abnormalities and the patient will require cardiac catheterization during this index hospital admission to assess for the possibility of recurrent significant obstructive coronary artery disease lending to chest pain, positive stress test findings, recently done as an outpatient with his primary chief green officer, Dr. Zay Samayoa, and positive troponins, concerning for non-ST elevation myocardial infarction. Thank you for allowing me to take part in the care of this patient. I will continue to follow along very closely with you. Further recommendations will be made as the patient progresses through his inpatient hospital clinical course. Dictated By: BELGICA CARABALLO/KASH Conf#: [id number] DID#: [id number] CC: OMAR HEAD CARPENTER ROUGH;*EndCC* MTDD
[2017-05-16] MEDS: MONTELUKAST 10 MG TAB PO SCH (20:43)
[2017-05-16] MEDS: ATORVASTATIN 40 MG TAB PO SCH (20:43)
[2017-05-17 00:24] VITALS: PULSE 59
[2017-05-17 04:06] VITALS: BP 125/70; RESP 19
[2017-05-17 04:23] VITALS: PULSE 57
[2017-05-17 06:36] LABS: WHITE BLOOD COUNT 9.3 10^3/ul (4.8-10.8)
[2017-05-17 06:37] LABS: BASOPHILS % 0.3 % (0.0-2.0); EOSINOPHILS # 0.3 10^3/ul (0.0-0.5); EOSINOPHILS % 3.2 % (0.0-7.0); HEMATOCRIT 43.5 % (42.0-52.0); HEMOGLOBIN 14.1 g/dl (14.0-18.0); LYMPHOCYTES # 2.5 10^3/ul (0.8-2.9); MEAN CORPUSCULAR HEMOGLOBIN 29.2 pg (29.0-33.0); MEAN CORPUSCULAR HGB CONC 32.4 g/dl (32.0-37.0); MEAN CORPUSCULAR VOLUME 90.1 fl (82.0-101.0); MEAN PLATELET VOLUME 10.8 fl (7.4-10.4); MONOCYTE # 0.8 10^3/ul (0.3-0.9); MONOCYTES % 8.4 % (0.0-11.0); NEUTROPHIL # 5.6 10^3/ul (1.6-7.5); NEUTROPHILS % 60.7 % (39.0-77.0); PLATELET COUNT 240 10^3/UL (140-415); RED BLOOD COUNT 4.83 10^6/ul (4.70-6.10); RED CELL DISTRIBUTION WIDTH 13.1 % (11.5-14.5)
[2017-05-17 07:13] LABS: MAGNESIUM 1.8 mg/dl (1.7-2.5); PHOSPHORUS 4.2 mg/dl (2.5-4.9)
[2017-05-17 07:14] LABS: TROPONIN-I 0.077 ng/ml (0.00-0.12)
[2017-05-17 07:25] LABS: CREATININE 0.86 mg/dl (0.61-1.24); POTASSIUM 4.7 mmol/L (3.5-5.1)
[2017-05-17 07:54] VITALS: BP 116/61; RESP 20
[2017-05-17 08:20] VITALS: PULSE 56
[2017-05-17] MEDS: ISOSORBIDE DINITRATE 10 MG TAB PO SCH ×3 (09:00→13:00)
[2017-05-17] MEDS: NICOTINE (14 MG/24 HR) PATCH TRANSDERM SCH (09:52)
[2017-05-17] MEDS: CLOPIDOGREL 75 MG TAB PO SCH (09:52)
[2017-05-17] MEDS: ASPIRIN 81 MG TAB PO SCH (09:53)
[2017-05-17] MEDS: FUROSEMIDE 20 MG TAB PO SCH (09:54)
[2017-05-17] MEDS: RANOLAZINE (SR) 500 MG TAB PO SCH (09:54)
[2017-05-17] MEDS: METOPROLOL 25 MG TAB PO SCH (09:54)
[2017-05-17] MEDS: ENOXAPARIN 100 MG/ML SYG SC SCH (10:07)
[2017-05-17 12:15] VITALS: PULSE 55
--- NOTE | 2017-05-17 13:27 | PQ ---
Date/Time of Note Date/Time of Note DATE: 05/17/17 TIME: 13:23 Physician Query Documentation Clarification Dear Dr. Dexter, A review of the medical record found a need for documentation clarification. progress note - documentation of CHF, unspecified Echo = 65% , . Abnormal Diastolic Function BNp = 239 Med = Lasix Please clarify( if known ) the acuity of CHF. To facilitate accurate and complete coding, please blanca ( x ) the suspected diagnosis that apply: ( ) Acute Systolic (Reduced EF) Heart Failure ( ICD10 I50.21 ) ( ) Acute Diastolic (Preserved EF) Heart Failure ( ICD10 I50.31 ) ( )Acute Combined Systolic & Diastolic Heart Failure ( ICD10 I50.41 ) ( ) Chronic Systolic (Reduced EF) Heart Failure ( ICD10 I50.22 ) ( ) Chronic Diastolic (Preserved EF) Heart Failure ( ICD10 I50.32 ) ( ) Chronic Combined Systolic & Diastolic Heart Failure ( ICD10 I50.42 ) ( ) Acute on Chronic Systolic (Reduced EF) Heart Failure ( ICD10 I50.23 ) ( )Acute on Chronic Diastolic (Preserved EF) Heart Failure ( ICD10 I50.33 ) ( ) Acute on Chronic Combined Systolic & Diastolic Heart Failure ( ICD10 I50.43 ) Please provide your response by clicking edit document, making your choice ( x ), click ok/save and finally click sign. You may also document your response on your progress notes. Thank you for your time. Sincerely, Rupesh Capps RN, BSN, CCS, CCDS, CDIP Clinical Coding Compliance Manager Health Information Management, CDI and Coding Services [phone] Room # 1525 - Coding [address]~ [address] RUPESH CAPPS May 17, 2017 13:27
--- NOTE | 2017-05-17 15:53 | DS ---
Date/Time of Note Date/Time of Note DATE: 05/17/17 TIME: 15:52 Discharge Summary Admission/Discharge Info Admit Date/Time May 14, 2017 at 15:32 Discharge Date/Time May 17, 2017 at 13:20 Hospital Course Patient was AGAINST MEDICAL ADVICE. Patient was educated about consequences of medical noncompliance. Patient still left AMA Home Meds Reported Medications Ranolazine* (Ranexa*) 500 Mg Tab.sr.12h, 500 MG PO Q12, TAB 05/14/17 Atorvastatin* (Atorvastatin*) 40 Mg Tablet, 40 MG PO QHS, #30 TAB 05/14/17 Nitroglycerin* (Nitroglycerin* SL) 0.4 Mg Tab.subl, 0.4 MG SL Q5MIN Y for CHEST PAIN, BOTTLE 05/14/17 Clopidogrel Bisulfate (Clopidogrel) 75 Mg Tablet, 75 MG PO DAILY, #30 TAB 05/14/17 Montelukast Sodium* (Montelukast Sodium*) 10 Mg Tablet, 10 MG PO QHS, #30 TAB 05/14/17 Aspirin* (Aspirin* Chew) 81 Mg Tab.chew, 81 MG PO DAILY, TAB.CHEW 05/14/17 Omeprazole* (Omeprazole*) 20 Mg Capsule.dr, 20 MG PO DAILY, #30 CAP 05/14/17 Metoprolol Tartrate* (Lopressor*) 25 Mg Tab, 25 MG PO BID, #60 TAB 05/14/17 Primary Care Provider Avel Khalil Pending Labs Laboratory Tests Test 05/17/17 05:49 White Blood Count 9.310^3/ul (4.8-10.8) Red Blood Count 4.8310^6/ul (4.70-6.10) Hemoglobin 14.1g/dl (14.0-18.0) Hematocrit 43.5% (42.0-52.0) Mean Corpuscular Volume 90.1fl (82.0-101.0) Mean Corpuscular Hemoglobin 29.2pg (29.0-33.0) Mean Corpuscular Hemoglobin Concent 32.4g/dl (32.0-37.0) Red Cell Distribution Width 13.1% (11.5-14.5) Platelet Count 08432^3/UL (140-415) Mean Platelet Volume 10.8fl (7.4-10.4) Neutrophils % 60.7% (39.0-77.0) Lymphocytes % 27.0% (15.0-51.0) Monocytes % 8.4% (0.0-11.0) Eosinophils % 3.2% (0.0-7.0) Basophils % 0.3% (0.0-2.0) Nucleated Red Blood Cells % 0.0/100WBC (0.0-0.0) Neutrophils # 5.610^3/ul (1.6-7.5) Lymphocytes # 2.510^3/ul (0.8-2.9) Monocytes # 0.810^3/ul (0.3-0.9) Eosinophils # 0.310^3/ul (0.0-0.5) Basophils # 0.010^3/ul (0.0-0.1) Nucleated Red Blood Cells # 0.010^3/ul (0.0-0.0) Sodium Level 138mmol/L (135-144) Potassium Level 4.7mmol/L (3.5-5.1) Chloride Level 104mmol/L (97-110) Carbon Dioxide Level 27mmol/L (21-31) Anion Gap 12 (8-16) Blood Urea Nitrogen 17mg/dl (7-20) Creatinine 0.86mg/dl (0.61-1.24) Glucose Level 105mg/dl (70-220) Calcium Level 9.0mg/dl (8.4-10.2) Phosphorus Level 4.2mg/dl (2.5-4.9) Magnesium Level 1.8mg/dl (1.7-2.5) Troponin I 0.077ng/ml (0.00-0.12) CARLEY GA May 17, 2017 15:53
--- NOTE | 2017-05-20 13:40 | RADRPT ---
Vent Rate: 61 bpm RR Interval: 0 msec [place] Interval: 134 msec QRS Duration: 76 msec QT Interval: 424 msec QTC Interval: 426 msec P-R-T [place]: 57 - -37 - 8 degrees Normal sinus rhythm Left axis deviation Low voltage QRS Cannot rule out Anterior infarct , age undetermined Abnormal ECG Electronically Signed By: Ryan Sloan [phone]
== END 2017-05-17 13:20 | disposition left against medical advice (07) | DRG 282 ==
LOC: E/R 10:32 → TEL 15:32
PROVIDERS: ADMIT Internal Medicine; ATTEND Internal Medicine
DX: I21.4 Non-ST elevation (NSTEMI) myocardial infarction (principal); I11.0 Hypertensive heart disease with heart failure; I50.9 Heart failure, unspecified; I25.10 Atherosclerotic heart disease of native coronary artery without angina pectoris; Z95.5 Presence of coronary angioplasty implant and graft; F17.210 Nicotine dependence, cigarettes, uncomplicated; E78.00 Pure hypercholesterolemia, unspecified
CPT/HCPCS: 36415; 71010; 80048; 80061; 82550; 82553; 83036; 83735; 83880; 84100; 84439; 84443; 84484; 85025; 85610; 85730; 93005; 93306; J1650